=== PATIENT | female | born 1980 | race Caucasian/White ===

== ENCOUNTER → 2022-06-19 09:15 | Outpatient (CLI) | payer OTHER, SELFPAY ==
--- NOTE | 2022-06-19 09:21 | XR_ITS ---
FINAL REPORT CLINICAL HISTORY: chronic foot/ankle pain FINDINGS: Right foot Three views were obtained. There is no acute fracture or dislocation. There are mild degenerative changes. There is a plantar calcaneal spur. There is no acute soft tissue abnormality. IMPRESSION: Mild degenerative change. Reviewed, Interpreted and Dictated by Rito Hanna III, MD Transcribed by Colin Cortez Authenticated and [facility]
--- NOTE | 2022-06-19 09:21 | XR_ITS ---
FINAL REPORT CLINICAL HISTORY: chronic foot/ankle pain FINDINGS: Right ankle Three views were obtained. There is no acute fracture or dislocation. There are mild degenerative changes. There is a plantar calcaneal spur. There is no acute soft tissue abnormality. IMPRESSION: Mild degenerative change. Reviewed, Interpreted and Dictated by Rito Hanna III, MD Transcribed by Colin Cortez Authenticated and [facility]
--- NOTE | 2022-06-19 09:21 | XR_ITS ---
FINAL REPORT CLINICAL HISTORY: chronic foot/ankle pain FINDINGS: Left foot Three views were obtained. There is no acute fracture or dislocation. There are mild degenerative changes. There is a plantar calcaneal spur. There is no acute soft tissue abnormality. IMPRESSION: Mild degenerative change. Reviewed, Interpreted and Dictated by Rito Hanna III, MD Transcribed by Colin Cortez Authenticated and [facility]
--- NOTE | 2022-06-19 09:21 | XR_ITS ---
FINAL REPORT CLINICAL HISTORY: chronic foot/ankle pain FINDINGS: Left ankle Three views were obtained. There is no acute fracture or dislocation. There are mild degenerative changes. There is a plantar calcaneal spur. There is no acute soft tissue abnormality. IMPRESSION: Mild degenerative change. Reviewed, Interpreted and Dictated by Rito Hanna III, MD Transcribed by Colin Cortez Authenticated and . [facility]
== END ==
PROVIDERS: PCP Family Medicine; Visit Provider Podiatrist
DX: G57.50 Tarsal tunnel syndrome, unspecified lower limb (principal); M25.572 Pain in left ankle and joints of left foot; M25.571 Pain in right ankle and joints of right foot; M79.672 Pain in left foot; M79.671 Pain in right foot
CPT/HCPCS: 73610; 73630

== ENCOUNTER 2022-06-19 11:03 | Outpatient (RCR) | payer OTHER, SELFPAY | END 2022-06-19 12:00 | disposition home or self-care (01) | LOC: PT 11:03 | PROVIDERS: Visit Provider Podiatrist | DX: M79.671 Pain in right foot (principal); M79.672 Pain in left foot ==

== ENCOUNTER 2023-02-12 08:52 | Day surgery (SDC) | payer OTHER, SELFPAY ==
[2023-02-10 09:31] VITALS: BMI 52.3
[2023-02-12] VITALS (8 sets, daily range): BP systolic 126–152; BP diastolic 71–99; PULSE 69–88; RESP 14–18; TEMP 36.1–36.6; O2SAT 93–100
--- NOTE | 2023-02-12 10:05 | P.PN_ITS ---
[facility] Disclaimer: The information contained in this section may have been updated after the patient was seen, as this information can be updated by other users. Medical History Blood in stool Diarrhea Fibromyalgia Flank pain History of anal fissures Hypothyroidism (acquired) Unintentional weight loss Vomiting Surgical History History of bladder surgery History of section, classical History of cholecystectomy History of partial hysterectomy Family History Sister Cancer, Onset Age: 38 Other Family history of diabetes mellitus type II Family history of heart disease Social History Smoking Status: Never smoker alcohol intake: never substance use type: denies use current occupational status: employed Travel in the last 8 weeks: None household members: family housing: house lives independently: No marital status: education level: college caffeine: No special jimmy needs: No do you feel safe at home: Yes victim of physical abuse: No victim of emotional abuse: No victim of sexual abuse: No would you like helpful sources: No [facility] Anesthesia Checklist Patient Identification Patient Identification: Arm Band and Verbal (Name & ) Structural Data Admitted From: Home Planned Operative Procedure/s: EGD/Colonoscopy Consent for Planned Operative Procedure(s) Verified: Yes NPO Status Verified Time NPO: 00:00 Airway Assessment C-Spine Mobility Assessed: Yes TMJ Mobility Assessed: Yes Dentition: Good Dentition Neurological Assessment Level of Consciousness: Awake Hx Seizures: No Numbness or tingling in extremities: No Anesthesia Plan Anesthesia Risk discussed: Yes Anesthesia Plan: Verified ASA Class: III Anesthesia Type: MAC
--- NOTE | 2023-02-12 10:40 | HMH.SCOPE ---
Procedure: Date: 02/12/23 Patient Date of :: 1980 Procedure Performed:: Colonoscopy Indications:: The patient is a 42 year old who has had recent weight loss, nausea, and vomiting. She relates unremarkable studies with labs and stool tests completed thru [place]. Studies are not available for review. She relates symptoms have recently improved Performing Provider:: Aristeo Izquierdo MD Referring Provider:: Olivia Winkler MD Sedation:: See RN records Procedure:: The gastroscope was gently passed through the incisoral orifice into the oral cavity and under direct visualization the esophagus was intubated. The endoscope was passed down the esophagus, through the stomach, and into the duodenum. Color, texture, mucosa, and anatomy of the esophagus, stomach, and duodenum were carefully examined with the scope. Findings:: Oropharynx: normal Esophagus: normal EG Junction: intact at 40 cm Cardia: normal Fundus: normal Body: Gastritis. Biopsies obtained Bilious fluid in stomach Antrum: Gastritis. Biopsies obtained Duodenal bulb: normal Duodenum (second and third portion): normal. Biopsies obtained Impression: Bilious fluid in stomach Gastritis Recommendations:: Await pathology results Carafate 1 gm four times per day x 30 days Move forward to colonoscopy for evaluation of symptoms Complications:: None Estimated blood obtained (mL): 0
--- NOTE | 2023-02-12 10:43 | HMH.SCOPE ---
Procedure: Date: 02/12/23 Patient Date of :: 1980 Procedure Performed:: Colonoscopy Indications:: The patient is a 42 year old with recent weight loss, nausea, vomiting Performing Provider:: Aristeo Izquierdo MD Referring Provider:: Olivia Winkler MD Sedation:: See RN records Procedure:: After placing the patient in the left lateral decubitus position, the colonoscopy was gently inserted into the rectum and under direct visualization advanced to the cecum which was identified by transillumination in the right lower quadrant, identification of the ileocecal valve, appendiceal orifice, and cecal strap. Color, texture, mucosa, and anatomy of the colon were carefully examined with the scope. Findings:: Anal canal: normal Rectum: hemorrhoids Sigmoid colon: Sessile polyp 4 mm in size. Removed with cold snare polypectomy. Diverticulosis. fair preparation Descending colon: fair preparation Splenic flexure: normal Transverse colon: normal without polyps or inflammatory changes Hepatic flexure: fair preparation Ascending colon: diverticulosis, fair to poor preparation Cecum: fair to poor preparation Impression: Polyp of distal sigmoid colon Diverticulosis Recommendations:: Await pathology results Keep follow up with GI office appointment Complications:: None Estimated blood obtained (mL): 0
== END 2023-02-12 11:35 | disposition home or self-care (01) ==
PROVIDERS: PCP Nurse Practitioner Family; Visit Provider Internal Medicine
PROC: 0DJ08ZZ Inspection of Upper Intestinal Tract, Via Natural or Artificial Opening Endoscopic (ICD-10-PCS; CPT 43235; principal; 2023-02-12 10:00)
DX: R11.2 Nausea with vomiting, unspecified (principal); R63.4 Abnormal weight loss; K64.8 Other hemorrhoids; K63.5 Polyp of colon; K57.30 Diverticulosis of large intestine without perforation or abscess without bleeding; K29.70 Gastritis, unspecified, without bleeding
CPT/HCPCS: 45385; J2704